=== PATIENT | male | born 1950 | race Caucasian/White ===

== ENCOUNTER 2016-09-26 18:12 | Emergency (ER) | payer OTHER ==
[~2016-09-26] VITALS: Ht 188 cm; Wt 123.1 kg
[2016-09-26 18:21] VITALS: TEMP 36.9; Ht 188 cm; Wt 123.1 kg
[2016-09-26] MEDS ORDERED: SODIUM CHLORIDE 0.9% 1000ML 1,000 ML IV STA ×2 (18:32→18:57)
[2016-09-26] MEDS ORDERED: FENTANYL CITRATE INJ 50 MCG/1 ML 2 ML VIAL IV STA (18:32)
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
[2016-09-26 19:12] LABS: PROTHROMBIN TIME (PATIENT) 11.2 SECONDS (9.0-12.0)
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
[2016-09-26 19:20] LABS: ISTAT CREATININE 1.2 mg/dl (0.6-1.3); ISTAT HEMOGLOBIN 13.9 g/dl (14.0-18.0); ISTAT IONIZED CALCIUM 1.22 mmol/l (1.12-1.32)
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
[2016-09-26] MEDS ORDERED: ASPI325T45 PO (19:46)
[2016-09-26] MEDS ORDERED: GLUCTAB7 PO (19:46)
[2016-09-26] MEDS ORDERED: MULT-506 PO (19:46)
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
[2016-09-26] MEDS ORDERED: DIPHTHERIA/TETANUS/PERTUSSIS 0.5 ML SYR/VIAL IM. ONE (20:00)
[2016-09-26 20:10] LABS: HEMATOCRIT 40.1 % (42-52); MEAN CELL VOLUME 94.4 fL (80-100); MEAN CORPUSCULAR HEMOGLOBIN 31.8 pg (25-34); MEAN CORPUSCULAR HGB CONC 33.7 g/dl (32-36); MEAN PLATELET VOLUME 10.2 fL (7.4-10.4); PLATELET COUNT 140 K/uL (130-400); RED BLOOD COUNT 4.25 M/uL (4.7-6.1)
[2016-09-26] MEDS: FENTANYL CITRATE INJ 50 MCG/1 ML 2 ML VIAL IV PRN ×5 (20:25→22:11)
[2016-09-26 20:26] LABS: ALT/SGPT 41 U/L (12-78); BLOOD UREA NITROGEN 27 mg/dl (7-18); BUN/CREATININE RATIO 20.9 (10-20); CALCIUM 8.5 mg/dl (8.5-10.1); CARBON DIOXIDE 28 mmol/L (21-32); CHLORIDE 107 mmol/L (98-107); GLUCOSE 150 mg/dl (70-99); SODIUM 140 mmol/L (136-145)
[2016-09-26 20:31] LABS: ALB/GLOB RATIO 1.2 (0.9-2); ALKALINE PHOSPHATASE 60 U/L (45-117); AST/SGOT 39 U/L (15-37)
[2016-09-26 20:33] LABS: BASO % 0.1 %; BASO ABS # 0.02 K/uL (0-0.2); COMPLETE YES; EOS % 0.2 %; IG% 0.5 %; LYMPH % 6.9 %; MONO % 7.9 %; NEUT % 84.4 %
[2016-09-26] MEDS ORDERED: LIDOCAINE HCL 1% 20 ML VIAL ONE (21:05)
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
[2016-09-26 23:31] VITALS: BP 133/74
[2016-09-26 23:56] VITALS: PULSE 76; O2SAT 97
[2016-09-27] MEDS: FENTANYL CITRATE INJ 50 MCG/1 ML 2 ML VIAL IV PRN (00:01)
[2016-09-27] MEDS ORDERED: MoRPHine SULFATE 10 MG/ML CARP/VIAL ONE (04:32)
[2016-09-27] MEDS ORDERED: ONDANSETRON INJ 2 MG/ML 2 ML VIAL ONE (04:33)
== END 2016-09-27 00:10 | disposition short-term general hospital (02) ==
LOC: EDBD 18:12 → C.EDA 18:16 → C.EDB 09-27 00:10
DX: S27.0XXA Traumatic pneumothorax, initial encounter (principal); S42.002A Fracture of unspecified part of left clavicle, initial encounter for closed fracture; S62.92XA Unspecified fracture of left hand, initial encounter for closed fracture; S52.125A Nondisplaced fracture of head of left radius, initial encounter for closed fracture; S22.42XA Multiple fractures of ribs, left side, initial encounter for closed fracture; S42.115A Nondisplaced fracture of body of scapula, left shoulder, initial encounter for closed fracture; S90.415A Abrasion, left lesser toe(s), initial encounter; V20.9XXA Unspecified motorcycle rider injured in collision with pedestrian or animal in traffic accident, initial encounter; Y92.410 Unspecified street and highway as the place of occurrence of the external cause

== ENCOUNTER → 2016-10-12 | Outpatient (CLI) | payer OTHER ==
[~2016-10-12] MED LIST: ASPI325T45 PO; GLUCTAB7 PO; MULT-506 PO
== END | disposition home or self-care (01) ==
LOC: C.RDSM 10:07
PROVIDERS: ATTEND Physical Medicine & Rehabilitation Sports Medicine
DX: S49.92XA Unspecified injury of left shoulder and upper arm, initial encounter (principal); X58.XXXA Exposure to other specified factors, initial encounter

== ENCOUNTER → 2016-10-12 | Outpatient (CLI) | payer OTHER ==
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
== END | disposition home or self-care (01) ==
LOC: C.CTS 12:09
PROVIDERS: ATTEND Physical Medicine & Rehabilitation Sports Medicine
DX: M79.641 Pain in right hand (principal); S42.112A Displaced fracture of body of scapula, left shoulder, initial encounter for closed fracture; S42.022A Displaced fracture of shaft of left clavicle, initial encounter for closed fracture; X58.XXXA Exposure to other specified factors, initial encounter

== ENCOUNTER → 2016-10-29 | Outpatient (CLI) | payer OTHER | END | disposition home or self-care (01) | LOC: C.RDSM 14:04 | PROVIDERS: ATTEND Physical Medicine & Rehabilitation Sports Medicine | DX: S42.022D Displaced fracture of shaft of left clavicle, subsequent encounter for fracture with routine healing (principal); S42.112D Displaced fracture of body of scapula, left shoulder, subsequent encounter for fracture with routine healing; X58.XXXD Exposure to other specified factors, subsequent encounter ==

== ENCOUNTER → 2016-11-19 | Outpatient (CLI) | payer OTHER | END | disposition home or self-care (01) | LOC: C.RDSM 16:21 | PROVIDERS: ATTEND Physical Medicine & Rehabilitation Sports Medicine | DX: S42.112D Displaced fracture of body of scapula, left shoulder, subsequent encounter for fracture with routine healing (principal); S42.022D Displaced fracture of shaft of left clavicle, subsequent encounter for fracture with routine healing; X58.XXXD Exposure to other specified factors, subsequent encounter ==

== ENCOUNTER → 2016-12-24 | Outpatient (CLI) | payer OTHER | END | disposition home or self-care (01) | LOC: C.RDSM 07:04 | PROVIDERS: ATTEND Physical Medicine & Rehabilitation Sports Medicine | DX: S42.022D Displaced fracture of shaft of left clavicle, subsequent encounter for fracture with routine healing (principal); S42.112D Displaced fracture of body of scapula, left shoulder, subsequent encounter for fracture with routine healing; X58.XXXD Exposure to other specified factors, subsequent encounter ==

== ENCOUNTER → 2017-02-04 | Outpatient (CLI) | payer OTHER | END | disposition home or self-care (01) | LOC: C.RDSM 12:00 | PROVIDERS: ATTEND Physical Medicine & Rehabilitation Sports Medicine | DX: S42.112A Displaced fracture of body of scapula, left shoulder, initial encounter for closed fracture (principal); X58.XXXA Exposure to other specified factors, initial encounter; S42.022D Displaced fracture of shaft of left clavicle, subsequent encounter for fracture with routine healing; X58.XXXD Exposure to other specified factors, subsequent encounter ==

== ENCOUNTER 2017-10-13 07:25 | Emergency (ER) | payer OTHER ==
[~2017-10-13 07:25] MED LIST changes: +ASPECOTC PO; -ASPI325T45 PO
[2017-10-13 07:31] VITALS: Ht 188 cm
[2017-10-13] MEDS ORDERED: ONDANSETRON INJ 2 MG/ML 2 ML VIAL IV STA (07:40)
[2017-10-13] MEDS ORDERED: SODIUM CHLORIDE 0.9% 1000ML 1,000 ML IV STA (07:40)
[2017-10-13] MEDS ORDERED: KETOROLAC TROMETHAMINE 30 MG/ML VIAL IV STA (07:40)
[2017-10-13] MEDS ORDERED: FENTANYL CITRATE INJ 50 MCG/1 ML 2 ML VIAL IV STA (07:40)
[2017-10-13 08:04] LABS: BASO % 0.3 %; BASO ABS # 0.02 K/uL (0-0.2); EOS % 1.3 %; EOS ABS # 0.08 K/uL (0-0.5); HEMATOCRIT 47.1 % (42-52); HEMOGLOBIN 16.3 g/dL (14.0-18.0); IG# 0.01 K/uL (0.00-0.02); LYMPH % 23.7 %; LYMPH ABS # 1.47 K/uL (1.2-3.4); MEAN CELL VOLUME 91.5 fL (80-100); MEAN CORPUSCULAR HEMOGLOBIN 31.7 pg (25-34); MEAN CORPUSCULAR HGB CONC 34.6 g/dl (32-36); MEAN PLATELET VOLUME 10.7 fL (7.4-10.4); MONO % 8.9 %; MONO ABS # 0.55 K/uL (0.11-0.59); NEUT % 65.6 %; NEUT ABS # 4.07 K/uL (1.4-6.5); PLATELET COUNT 152 K/uL (130-400); RED CELL DISTRIBUTION WIDTH CV 12.7 % (11.5-14.5); RED CELL DISTRIBUTION WIDTH SD 42.4 fL (36.4-46.3)
[2017-10-13 08:25] LABS: ALBUMIN 4.5 gm/dl (3.4-5.0); ALKALINE PHOSPHATASE 79 U/L (45-117); ALT/SGPT 45 U/L (12-78); AST/SGOT 28 U/L (15-37); BLOOD UREA NITROGEN 20 mg/dl (7-18); CALCIUM 9.4 mg/dl (8.5-10.1); CARBON DIOXIDE 20 mmol/L (21-32); CREATININE 1.21 mg/dl (0.60-1.40); GLUCOSE 163 mg/dl (70-99); LIPASE 139 U/L (73-393); POTASSIUM 3.8 mmol/L (3.5-5.1); SODIUM 140 mmol/L (136-145); TOTAL PROTEIN 8.1 gm/dl (6.4-8.2)
--- NOTE | 2017-10-13 08:49 | DIAGNOSTIC IMAGING REPORT ---
ABD/PELVIS WITHOUT FOR STONE HISTORY: 67 years-old Male flank pain acute bilateral flank pain COMPARISON: CT abdomen and pelvis 09/26/2016 TECHNIQUE: Multiple axial CT images of the abdomen and pelvis were obtained without use of IV contrast. A dose lowering technique was used consistent with the principals of ANNIA. FINDINGS: 4 mm solid nodule of the right lower lobe on image 22 series 3 appears unchanged. No pneumatosis or pneumoperitoneum. Imaged inferior cardiac chambers are unremarkable. Hepatic steatosis. Probable cyst of the left hepatic lobe, 2.3 cm is unremarkable. No intrahepatic biliary ductal dilation. The spleen, pancreas and adrenal glands are unremarkable. 1.5 cm hypodense lesion of the superior pole right kidney is redemonstrated suggesting probable renal cyst. Mild bilateral perinephric stranding. There is mild right-sided hydroureteronephrosis secondary to a 5 x 4 x 5 mm calculus of the mid right ureter which is seen at the level of the mid L4 vertebral body. The previously noted calculus about the inferior pole left kidney is no longer identified. There is a 6 mm linear calcification about the left hemipelvis and image 361 series 3 which suggests a calculus of the distal left ureter approximately 3.5 cm proximal to the ureterovesicular junction. No significant left-sided obstructive uropathy. Prostamegaly with soft tissue mass measuring up to approximately 3.2 x 3.0 cm about the right paracentral floor of the bladder. Aorta and IVC appear unremarkable. There are no pathologically enlarged lymph nodes. Small moderate fat filled bilateral inguinal hernias. No bowel obstruction or focal bowel wall thickening identified. Moderate sized stool ball about the rectum. Colonic diverticulosis without diverticulitis. Terminal ileum and appendix appear unremarkable. Small fat filled periumbilical hernia, diastases 1.5 cm. No ascites or mesenteric inflammatory changes. Bones appear intact. Multilevel spondylitic spurring with intervertebral disc space narrowing. IMPRESSION: 1. Mild right-sided hydroureteronephrosis secondary to a 5 x 4 x 5 mm calculus of the mid right ureter seen at the level of the mid L4 vertebral body. 2. Previously noted nonobstructing calculus about the inferior pole left kidney is no longer identified. Additionally, there is a 6 mm linear calcification about the left hemipelvis suggesting a calculus of the distal left ureter, approximately 3.5 cm proximal to the ureterovesicular junction. 3. Prostamegaly with soft tissue density again seen about the base of the urinary bladder measuring over 3 cm, again suggesting prostatic tissue with urinary bladder neoplasm thought to be less likely. This could be correlated with cystoscopy if of further clinical concern. 4. Colonic diverticulosis without diverticulitis. 5. Hepatic steatosis. 6. Additional findings as above. The above report was generated using voice recognition software. It may contain grammatical, syntax or spelling errors. Electronically signed by: Tuan Neumann M.D. 10/13/2017 8:48 AM Dictated Date/Time: 10/13/2017 8:34 AM
[2017-10-13] MEDS ORDERED: OXYC-57 PO (09:59)
[2017-10-13] MEDS ORDERED: TAMS0.4C38 PO (09:59)
[2017-10-13] MEDS ORDERED: OXYCODONE/ACETAMINOPHEN 5-325 TAB PO ONE (10:00)
[2017-10-13] MEDS ORDERED: TAMSULOSIN HCL 0.4 MG CAP PO ONE (10:00)
[2017-10-13 10:03] VITALS: BP 109/87; PULSE 53; O2SAT 96
--- NOTE | 2017-10-13 10:04 | EMERGENCY ROOM VISIT NOTE ---
History Report prepared by Paulinaibkyle: Corrine Lyn Under the Supervision of: Dr. Hao Valdivia D.O. First contact with patient: 07:34 Chief Complaint: ABDOMINAL PAIN Stated Complaint: ABD PAIN History of Present Illness The patient is a 67 year old male who presents to the Emergency Room with complaints of severe intermittent lower right abdominal/flank pain beginning 2 hours ago. He notes the pain came on suddenly, and now comes in waves. The patient reports he began vomiting shortly after the pain started. He notes movement does not seem to worsen his pain. The patient states he urinated about 1.5 hours before the pain began, and did not notice any blood in his urine at that time. Source of History: patient Onset: 2 hours ago Position: abdomen (lower right abdomen/flank) Symptom Intensity: severe Timing: intermittent Modifying Factors (Worsening): other (not worsened by movement) Associated Symptoms: + vomiting Review of Systems See HPI for pertinent positives & negatives. A total of 10 systems reviewed and were otherwise negative. Past Medical & Surgical Medical Problems: (1) No Known Active Medical Problems Family History No pertinent family history stated. Social History Smoking Status: Never Smoker Drug Use: none Marital Status: Housing Status: lives with family Occupation Status: retired Current/Historical Medications Scheduled Aspirin (Aspirin), 325 MG PO DAILY Wuhybogleib-Hkhpmrpngqc-Dhy C- (Glucosamine Chondroitin), 1 TAB PO DAILY Multivitamin (Multivitamin), 1 TAB PO DAILY Allergies Coded Allergies: No Known Allergies (Unverified , 10/13/17) Physical Exam Vital Signs Date Time Temp Pulse Resp B/P (MAP) Pulse Ox O2 Delivery O2 Flow Rate FiO2 10/13/17 08:16 54 14 130/78 98 Room Air 10/13/17 07:31 64 20 161/81 100 Room Air Physical Exam CONSTITUTIONAL/VITAL SIGNS: Reviewed / noted above. GENERAL: Non-toxic in appearance. INTEGUMENTARY: Warm, dry, and [place]. HEAD: Normocephalic. EYES: without scleral icterus or trauma. ENT/OROPHARYNX: clear and moist. LYMPHADENOPATHY/NECK: Is supple without lymphadenopathy or meningismus. RESPIRATORY: Lungs clear and equal. CARDIOVASCULAR: Regular rate and rhythm. GI/ABDOMEN: Soft and nontender. No organomegaly or pulsatile mass. No rebound or guarding. Normal bowel sounds. EXTREMITIES: Warm and well perfused. BACK: Mild right-sided CVA tenderness. NEUROLOGICAL: Intact without focal deficits. PSYCHIATRIC: normal affect. MUSCULOSKELETAL: Normally developed with good muscle tone. Medical Decision & Procedures ER Provider Diagnostic Interpretation: Radiology results as stated below per my review and radiologist interpretation: ABD/PELVIS WITHOUT FOR STONE HISTORY: 67 years-old Male flank pain acute bilateral flank pain COMPARISON: CT abdomen and pelvis 09/26/2016 TECHNIQUE: Multiple axial CT images of the abdomen and pelvis were obtained without use of IV contrast. A dose lowering technique was used consistent with the principals of ANNIA. FINDINGS: 4 mm solid nodule of the right lower lobe on image 22 series 3 appears unchanged. No pneumatosis or pneumoperitoneum. Imaged inferior cardiac chambers are unremarkable. Hepatic steatosis. Probable cyst of the left hepatic lobe, 2.3 cm is unremarkable. No intrahepatic biliary ductal dilation. The spleen, pancreas and adrenal glands are unremarkable. 1.5 cm hypodense lesion of the superior pole right kidney is redemonstrated suggesting probable renal cyst. Mild bilateral perinephric stranding. There is mild right-sided hydroureteronephrosis secondary to a 5 x 4 x 5 mm calculus of the mid right ureter which is seen at the level of the mid L4 vertebral body. The previously noted calculus about the inferior pole left kidney is no longer identified. There is a 6 mm linear calcification about the left hemipelvis and image 361 series 3 which suggests a calculus of the distal left ureter approximately 3.5 cm proximal to the ureterovesicular junction. No significant left-sided obstructive uropathy. Prostamegaly with soft tissue mass measuring up to approximately 3.2 x 3.0 cm about the right paracentral floor of the bladder. Aorta and IVC appear unremarkable. There are no pathologically enlarged lymph nodes. Small moderate fat filled bilateral inguinal hernias. No bowel obstruction or focal bowel wall thickening identified. Moderate sized stool ball about the rectum. Colonic diverticulosis without diverticulitis. Terminal ileum and appendix appear unremarkable. Small fat filled periumbilical hernia, diastases 1.5 cm. No ascites or mesenteric inflammatory changes. Bones appear intact. Multilevel spondylitic spurring with intervertebral disc space narrowing. IMPRESSION: 1. Mild right-sided hydroureteronephrosis secondary to a 5 x 4 x 5 mm calculus of the mid right ureter seen at the level of the mid L4 vertebral body. 2. Previously noted nonobstructing calculus about the inferior pole left kidney is no longer identified. Additionally, there is a 6 mm linear calcification about the left hemipelvis suggesting a calculus of the distal left ureter, approximately 3.5 cm proximal to the ureterovesicular junction. 3. Prostamegaly with soft tissue density again seen about the base of the urinary bladder measuring over 3 cm, again suggesting prostatic tissue with urinary bladder neoplasm thought to be less likely. This could be correlated with cystoscopy if of further clinical concern. 4. Colonic diverticulosis without diverticulitis. 5. Hepatic steatosis. 6. Additional findings as above. The above report was generated using voice recognition software. It may contain grammatical, syntax or spelling errors. Electronically signed by: Tuan Neumann M.D. 10/13/2017 8:48 AM Dictated Date/Time: 10/13/2017 8:34 AM Laboratory Results 10/13/17 07:57 Red Blood Count 5.15, Mean Corpuscular Volume 91.5, Mean Corpuscular Hemoglobin 31.7, Mean Corpuscular Hemoglobin Concent 34.6, Mean Platelet Volume 10.7, Neutrophils (%) (Auto) 65.6, Lymphocytes (%) (Auto) 23.7, Monocytes (%) (Auto) 8.9, Eosinophils (%) (Auto) 1.3, Basophils (%) (Auto) 0.3, Neutrophils # (Auto) 4.07, Lymphocytes # (Auto) 1.47, Monocytes # (Auto) 0.55, Eosinophils # (Auto) 0.08, Basophils # (Auto) 0.02 10/13/17 07:57 Test 10/13/17 07:57 10/13/17 09:15 White Blood Count 6.20 K/uL (4.8-10.8) Red Blood Count 5.15 M/uL (4.7-6.1) Hemoglobin 16.3 g/dL (14.0-18.0) Hematocrit 47.1 % (42-52) Mean Corpuscular Volume 91.5 fL (80-100) Mean Corpuscular Hemoglobin 31.7 pg (25-34) Mean Corpuscular Hemoglobin Concent 34.6 g/dl (32-36) Platelet Count 152 K/uL (130-400) Mean Platelet Volume 10.7 fL (7.4-10.4) Neutrophils (%) (Auto) 65.6 % Lymphocytes (%) (Auto) 23.7 % Monocytes (%) (Auto) 8.9 % Eosinophils (%) (Auto) 1.3 % Basophils (%) (Auto) 0.3 % Neutrophils # (Auto) 4.07 K/uL (1.4-6.5) Lymphocytes # (Auto) 1.47 K/uL (1.2-3.4) Monocytes # (Auto) 0.55 K/uL (0.11-0.59) Eosinophils # (Auto) 0.08 K/uL (0-0.5) Basophils # (Auto) 0.02 K/uL (0-0.2) RDW Standard Deviation 42.4 fL (36.4-46.3) RDW Coefficient of Variation 12.7 % (11.5-14.5) Immature Granulocyte % (Auto) 0.2 % Immature Granulocyte # (Auto) 0.01 K/uL (0.00-0.02) Anion Gap 14.0 mmol/L (3-11) Estimated GFR () 71.4 Estimated GFR (Non- 61.6 BUN/Creatinine Ratio 16.2 (10-20) Calcium Level 9.4 mg/dl (8.5-10.1) Total Bilirubin 1.0 mg/dl (0.2-1) Direct Bilirubin 0.2 mg/dl (0-0.2) Aspartate Amino Transf (AST/SGOT) 28 U/L (15-37) Alanine Aminotransferase (ALT/SGPT) 45 U/L (12-78) Alkaline Phosphatase 79 U/L (45-117) Total Protein 8.1 gm/dl (6.4-8.2) Albumin 4.5 gm/dl (3.4-5.0) Lipase 139 U/L (73-393) Urine Color DK YELLOW Urine Appearance CLEAR (CLEAR) Urine pH 6.5 (4.5-7.5) Urine Specific [place] 1.029 (1.000-1.030) Urine Protein NEG (NEG) Urine Glucose (UA) NEG (NEG) Urine Ketones TRACE (NEG) Urine Occult Blood 1+ (NEG) Urine Nitrite NEG (NEG) Urine Bilirubin NEG (NEG) Urine Urobilinogen NEG (NEG) Urine Leukocyte Esterase TRACE (NEG) Urine WBC (Auto) 1-5 /hpf (0-5) Urine RBC (Auto) 10-30 /hpf (0-4) Urine Hyaline Casts (Auto) 1-5 /lpf (0-5) Urine Epithelial Cells (Auto) 10-20 /lpf (0-5) Urine Bacteria (Auto) NEG (NEG) Laboratory results as stated above per my review. Medications Administered Medications (Trade) Dose Ordered Sig/Liz Route Start Time Stop Time Status Last Admin Dose Admin Sodium Chloride 1,000 ml @ 999 mls/hr Q1H1M STAT IV 10/13/17 07:40 10/13/17 08:40 DC 10/13/17 08:01 999 MLS/HR Fentanyl Citrate (Fentanyl Inj) 100 mcg NOW STAT IV 10/13/17 07:40 10/13/17 07:41 DC 10/13/17 08:00 100 MCG Ondansetron HCl (Zofran Inj) 4 mg NOW STAT IV 10/13/17 07:40 10/13/17 07:41 DC 10/13/17 08:00 4 MG Ketorolac Tromethamine (Toradol Inj) 30 mg NOW STAT IV 10/13/17 07:40 10/13/17 07:41 DC 10/13/17 08:01 30 MG ED Course 0736: Previous medical records were reviewed. The patient was evaluated in room A12B. A complete history and physical examination was performed. 0740: Ordered Toradol Inj 30 mg IV, Zofran Inj 4 mg IV, Fentanyl Inj 100 mcg IV , Sodium Chloride 1000 ml @ 999 mls/hr IV 0937: On reevaluation, the patient is resting. I discussed the results and findings with the patient. He verbalized agreement of the treatment plan. The patient was discharged home. Medical Decision Differential considered: pancreatitis, hepatitis, or acute cholecystitis, AAA, UTI, pyelonephritis, kidney stones, appendicitis, diverticulitis, shingles, bowel obstruction mesenteric ischemia, intussusception,hernia, testicular torsion. This is a 67-year-old male who presents to the ED with a chief complaint of right sided abdominal pain. The patient states that the symptoms started suddenly around 5 AM today. It was associated with some nausea and vomiting. He states that the pain waxes and wanes. His physical exam was relatively unremarkable. He had some mild right CVA tenderness. His blood pressure was a little elevated. This is likely due to his discomfort. His abdomen is soft and nontender. CT scan of the abdomen pelvis reveals some mild right-sided hydronephrosis and a 5 x 5 mm calculus in the mid right ureter. CBC as well as metabolic panel was unremarkable. Urine did not show infection. The patient was treated with IV fluids, IV Toradol, IV fentanyl and IV Zofran. He was also given oral Flomax and a Percocet p.o. He was told the results. He was feeling better. He was discharged with urine strainer. He was also told to take ibuprofen 400 mg every 6 hours and take Percocet as needed. Flomax was also prescribed. Medication Reconcilliation Current Medication List: was personally reviewed by me Blood Pressure Screening Patient's blood pressure: Elevated blood pressure Blood pressure disposition: Elevated BP felt to be situational Impression Primary Impression: Kidney stone Scribe Attestation The scribe's documentation has been prepared under my direction and personally reviewed by me in its entirety. I confirm that the note above accurately reflects all work, treatment, procedures, and medical decision making performed by me. Departure Information Dispostion Home / Self-Care Prescriptions Oxycodone/Acetaminophen 5MG/325MG (PERCOCET 5MG/325MG) Tab 1 TAB PO Q6H Y for Pain, #20 TAB Prov: Hao Valdivia D.O. 10/13/17 Tamsulosin Hcl (FLOMAX) 0.4 Mg Cap 0.4 MG PO HS for 10 Days, #10 CAP Prov: Hao Valdivia D.O. 10/13/17 Referrals Tuyet Mar (PCP) Forms Call Back Authorization, HOME CARE DOCUMENTATION FORM, IMPORTANT VISIT INFORMATION Patient Instructions Kidney Stones, My [facility] Additional Instructions Strain urine for stone. Take ibuprofen 2-3 tablets every 6 hours for pain until stone passes. Percocet as prescribed. No driving within 6 hours of use. Do not take additional Tylenol while taking Percocet. Flomax as prescribed. Follow-up with your doctor for further care and evaluation in 3-4 days if symptoms persist. Return to the emergency department for worsening or new symptoms or any concerns. You have been examined and treated today on an emergency basis only. This is not a substitute for, or an effort to provide, complete comprehensive medical care. It is impossible to recognize and treat all injuries or illnesses in a single emergency department visit. It is therefore important that you follow up closely with your doctor. Call as soon as possible for an appointment.
== END 2017-10-13 10:17 | disposition home or self-care (01) ==
LOC: C.EDB 07:26 → C.EDA 10:17
DX: N20.0 Calculus of kidney (principal); Z79.82 Long term (current) use of aspirin; Z79.899 Other long term (current) drug therapy

== ENCOUNTER 2022-05-03 16:40 | Observation (INO) ==
--- NOTE | 2022-05-03 16:56 | ED Triage Note ---
Date of Service May 03, 2022 History of Present Illness This patient was briefly evaluated while in triage. An abbreviated physical exam was performed. This patient is a 71-year-old Male who presents to the ED for evaluation of intermittent severe left flank pain that began today. Accompanied by nausea and vomiting. Worse with inspiration. History of kidney stone in 2018. Physical Exam CONSTITUTIONAL: uncomfortable appearing, nauseated. SKIN: pink, warm, diaphoretic CARDIAC: regular rate and rhythm RESPIRATORY: in no respiratory distress, lungs clear to auscultation ABDOMEN: no focal tenderness BACK: tender in L lower flank region Initial orders for labs and / or imaging were placed and patient was placed in the waiting area until a bed is available. Please see further documentation for the full ED course.
[2022-05-03] MEDS ORDERED: ONDANSETRON INJ 2 MG/ML 2 ML VIAL IV STA (17:00)
[2022-05-03] MEDS ORDERED: SODIUM CHLORIDE 0.9% 500 ML IV ONE (17:00)
[2022-05-03] MEDS ORDERED: MoRPHine SULFATE 4 MG/ML 1 ML CARP\\VIAL IV STA (17:00)
[2022-05-03 17:25] LABS: Basophils # (auto) 0.04 K/uL (0-0.2); Basophils % (auto) 0.3 %; Eosinophils # (auto) 0.05 K/uL (0-0.50); Eosinophils % (auto) 0.4 %; Hematocrit (blood only) 40.9 % (42.0-52.0); Hemoglobin 14.5 g/dl (14.0-18.0); Immature Granulocytes # (auto) 0.04 K/uL (0.01-0.20); Immature Granulocytes % (auto) 0.3 %; Lymphocytes # (auto) 1.19 K/uL (1.2-3.4); Lymphocytes % (auto) 9.9 %; Mean Corpuscular Hemoglobin 31.7 pg (25.0-34.0); Mean Corpuscular Hgb Conc 35.5 g/dL (32.0-36.0); Mean Corpuscular Volume 89.3 fL (80.0-100.0); Mean Platelet Volume 10.7 fL (9.4-12.4); Monocytes # (auto) 1.34 K/uL (0.11-0.59); Monocytes % (auto) 11.2 %; Neutrophils # (auto) 9.32 K/uL (1.40-6.50); Neutrophils % (auto) 77.9 %; Platelet Count 151 K/uL (130-400); RDW Coefficient of Variation 12.5 % (11.5-14.5); Red Blood Count 4.58 M/uL (4.70-6.10); White Blood Count 11.98 K/ul (4.8-10.8)
[2022-05-03 17:41] LABS: Alanine Aminotransferase 24 U/L (7-52); Albumin Globulin Ratio 1.7 (0.9-2); Albumin Level 4.7 gm/dl (3.4-5.0); Alkaline Phosphatase 62 U/L (34-104); Anion Gap 8 (3-11); Aspartate Aminotransferase 21 U/L (13-39); BUN Creatinine Ratio 15.7 (10-20); Bilirubin,Total 1.9 mg/dl (0.2-1.0); Blood Urea Nitrogen 13 mg/dl (6-23); Calcium 9.3 mg/dl (8.5-10.1); Carbon Dioxide 26 mmol/L (21-32); Chloride 102 mmol/L (98-107); Est GFR (African American) 102.6 ml/min; Est GFR (Non-African American) 88.5 ml/min; Globulin 2.7 gm/dl (2.5-4.0); Glucose 133 mg/dl (70-99(Fasting)); Lipase 12 U/L (11-82); Potassium 3.7 mmol/L (3.5-5.1); Sodium 136 mmol/L (136-145); Total Protein 7.4 gm/dl (6.0-8.3)
--- NOTE | 2022-05-03 18:41 | Emergency Department Note ---
Impression & Plan Pulmonary embolism, Acute left flank pain ED Provider Note NAME: GABINO CULP AGE: 71 SEX: M : 1950 ARRIVES VIA: Walk-In INFORMANT: Patient, ED PROVIDER(S): Avery Dodson DO CHIEF COMPLAINT: Flank pain HPI: The patient is a 71-year-old male who presented to the emergency department for an evaluation of flank pain. The patient states he developed flank pain over the course of the last few days. He had kidney stones in the past and thought that what it was. The patient states that he was trying to hydrate hoping that this would help with his kidney stones but unfortunately he was not feeling much better. The patient has not been seen by his family doctor. The patient states the pain is somewhat improved at this time but it does have a waxing and waning component. The patient denies having any chest pain. He denies having any difficulty breathing. He has had no lower extremity swelling. ROS: See above HPI for pertinent positives & negatives. A total of 10 systems reviewed and were otherwise negative. PAST MEDICAL HISTORY: See Below PAST SURGICAL HISTORY: See Below FAMILY HISTORY: See Below SOCIAL HISTORY: See Below HOME MEDICATIONS: See Below ALLERGIES: See Below VITALS: See Below PHYSICAL EXAMINATION: GENERAL: The patient is awake and alert. He does appear to be somewhat unco mfortable. EYES: The conjunctivae are clear. The pupils are round and reactive. EARS, NOSE, MOUTH AND THROAT: The nose is without any evidence of any deformity. NECK: The neck is nontender and supple. RESPIRATORY: Normal respiratory effort is noted there is no evidence of wheezing rhonchi or rales CARDIOVASCULAR: Regular rate and rhythm noted there no murmurs rubs or gallops normal S1 normal S2. GASTROINTESTINAL: The abdomen is soft. Abdomen is nontender BACK: There is no midline tenderness to palpation. There was left CVA tenderness to percussion. MUSCULOSKELETAL/EXTREMITIES: There is no evidence of gross deformity full range of motion is noted in the hips and shoulders. SKIN: Pedal edema was noted bilaterally. Skin was warm and dry. NEUROLOGIC: Patient is awake alert and oriented x3. Gait was steady. MEDICAL DECISION MAKING: The patient is a 71-year-old male who presented to the emergency department for an evaluation of flank pain. Initially he was seen in triage and orders were placed for a kidney stone work-up as the patient felt this was consistent with previous kidney stone. He also had reproducible left CVA tenderness. He was also complaining of pleuritic pain as well. He was not tachycardic or hypoxic. The patient has no history of pulmonary venous thromboembolic disease. After the CT of the abdomen pelvis was obtained it did suggest a pulmonary infarct. For this reason CT of the chest was obtained. This appears to show signs of bilateral pulmonary embolism. The patient was started on IV heparin. I discu ssed the patient's condition with him. [facility] also [facility] have agreed to evaluate the patient in the emergency department for further management and disposition. Triage Nursing notes reviewed. Prior medical records reviewed Vital Signs: reviewed and remarkable for no significant abnormalities Differential diagnosis: Renal colic, UTI, appendicitis, diverticulitis, mesenteric ischemia, aortic pathology, infections, inflammatory bowel disease, PUD, biliary pathology, as well as other pathologies. ER treatment provided: See below Diagnostics interpreted by me: ECG: EKG was obtained in the emergency department. My interpretation is normal sinus rhythm at 62 bpm. There is no ectopy. There is no acute ST segment abnormalities noted. This was compared to a tracing from September 26, 2016. No changes were noted Cardiac Monitoring: An order was placed for continuous cardiac monitoring. The monitor shows a rate of 70 bpm with sinus rhythm. Laboratory studies: As stated above and show below. Imaging studies: See below. Radiographic imaging was reviewed by myself Consultation(s): I discussed this case with Dr. Claudio who [facility] ED COURSE: Procedures: none Critical Care: I have personally spent greater than 45 minutes of critical care time in the direct management of this patient. This includes bedside care, interpretation of diagnostic studies, and testing, discussion with consultants, patient, and family members, and other required patient management activities. This 45 minutes is in excess of all separately billable procedures. Past Med/Surg History Medical History (Updated 05/03/22 @ 22:28 by Byron Castaneda DO) BPH (benign prostatic hyperplasia) Kidney stone Social History Smoking Status: Never smoker Feels Safe at Home: Yes Allergies Allergies Allergy/AdvReac Type Severity Reaction Status Date / Time No Known Allergies Allergy Unverified 05/03/22 20:53 Home Meds Home Medications Medication Instructions Recorded Confirmed faekjfwydctg-sxmgrikv-[id number] tablet 1 tab PO DAILY 05/03/22 05/03/22 Results & Data (ED) Vital Signs Vital Signs - 24 hr 05/03/22 16:54 05/03/22 18:23 05/03/22 19:35 Temperature 36.8 C Temperature Source Temporal Artery Scan Pulse Rate 83 66 Pulse Rate [Right Finger] 81 Respiratory Rate 20 18 Respiratory Effort / Characteristics Non-Labored Spontaneous Respiratory Depth Normal Respiratory Pattern Regular Blood Pressure 140/86 Blood Pressure [Right Arm] 120/75 Blood Pressure Mean 104 Blood Pressure Mean [Right Arm] 90 Pulse Oximetry 94 95 Oxygen Delivery Method Room Air Room Air Sepsis Recent Fever Within 48 Hours No Sepsis New/Unexplained Change in Mental Status No Sepsis Action Taken by Nursing No Action Required 05/03/22 19:38 Temperature Temperature Source Pulse Rate Pulse Rate [Right Finger] 65 Respiratory Rate 18 Respiratory Effort / Characteristics Respiratory Depth Respiratory Pattern Blood Pressure Blood Pressure [Right Arm] 114/67 Blood Pressure Mean Blood Pressure Mean [Right Arm] 82 Pulse Oximetry 94 Oxygen Delivery Method Room Air Sepsis Recent Fever Within 48 Hours Sepsis New/Unexplained Change in Mental Status Sepsis Action Taken by Custodial Medications Current Medication List: was personally reviewed by me Laboratory Data Attestation: I reviewed the patient's lab results. 05/03/22 17:06 05/03/22 17:06 Lab Results 05/03/22 05/03/22 05/03/22 Range/Units 17:06 17:06 18:24 WBC 11.98 H (4.8-10.8) K/ul RBC 4.58 L (4.70-6.10) M/uL Hgb 14.5 (14.0-18.0) g/dl Hct 40.9 L (42.0-52.0) % MCV 89.3 (80.0-100.0) fL MCH 31.7 (25.0-34.0) pg MCHC 35.5 (32.0-36.0) g/dL RDW Std Deviation 41.0 (36.4-46.3) fL RDW Coeff of Ivis 12.5 (11.5-14.5) % Plt Count 151 (130-400) K/uL MPV 10.7 (9.4-12.4) fL Immature Gran % (Auto) 0.3 % Neut % (Auto) 77.9 % Lymph % (Auto) 9.9 % [place] % (Auto) 11.2 % Eos % (Auto) 0.4 % Baso % (Auto) 0.3 % Neut # (Auto) 9.32 H (1.40-6.50) K/uL Lymph # (Auto) 1.19 L (1.2-3.4) K/uL [place] # (Auto) 1.34 H (0.11-0.59) K/uL Eos # (Auto) 0.05 (0-0.50) K/uL Baso # (Auto) 0.04 (0-0.2) K/uL Immature Gran # (Auto) 0.04 (0.01-0.20) K/uL PT (9.0-12.0) Seconds INR (0.9-1.1) APTT (21.0-31.0) Seconds PTT Ratio Sodium 136 (136-145) mmol/L Potassium 3.7 (3.5-5.1) mmol/L Chloride 102 (98-107) mmol/L Carbon Dioxide 26 (21-32) mmol/L Anion Gap 8 (3-11) BUN 13 (6-23) mg/dl Creatinine 0.83 (0.6-1.4) mg/dl Est Cr Clr Drug Dosing Not Reportable Est GFR ( Amer) 102.6 ml/min Est GFR (Non-Af Amer) 88.5 ml/min BUN/Creatinine Ratio 15.7 (10-20) Glucose 133 H (70-99(Fasting)) mg/dl Calcium 9.3 (8.5-10.1) mg/dl Total Bilirubin 1.9 H (0.2-1.0) mg/dl AST 21 (13-39) U/L ALT 24 (7-52) U/L Alkaline Phosphatase 62 (34-104) U/L Troponin I High Sens (0-20) pg/ml Total Protein 7.4 (6.0-8.3) gm/dl Albumin 4.7 (3.4-5.0) gm/dl Globulin 2.7 (2.5-4.0) gm/dl Albumin/Globulin Ratio 1.7 (0.9-2) Lipase 12 (11-82) U/L Urine Color Yellow Urine Appearance Clear (Clear) Urine pH 7.5 (4.5-7.5) Ur Specific [place] 1.010 (1.000-1.030) Urine Protein Negative (Negative) Urine Glucose (UA) Negative (Negative) Urine Ketones Negative (Negative) Urine Blood Negative (Negative) Urine Nitrite Negative (Negative) Urine Bilirubin Negative (Negative) Urine Urobilinogen Negative (Negative) Ur Leukocyte Esterase Negative (Negative) SARS-CoV-2, RNA, NAAT (NEGATIVE) 05/03/22 05/03/22 05/03/22 Range/Units 19:22 19:22 20:19 WBC (4.8-10.8) K/ul RBC (4.70-6.10) M/uL Hgb (14.0-18.0) g/dl Hct (42.0-52.0) % MCV (80.0-100.0) fL MCH (25.0-34.0) pg MCHC (32.0-36.0) g/dL RDW Std Deviation (36.4-46.3) fL RDW Coeff of [place] (11.5-14.5) % Plt Count (130-400) K/uL MPV (9.4-12.4) fL Immature Gran % (Auto) % Neut % (Auto) % Lymph % (Auto) % [place] % (Auto) % Eos % (Auto) % Baso % (Auto) % Neut # (Auto) (1.40-6.50) K/uL Lymph # (Auto) (1.2-3.4) K/uL [place] # (Auto) (0.11-0.59) K/uL Eos # (Auto) (0-0.50) K/uL Baso # (Auto) (0-0.2) K/uL Immature Gran # (Auto) (0.01-0.20) K/uL PT 11.2 (9.0-12.0) Seconds INR 1.1 (0.9-1.1) APTT 27.1 (21.0-31.0) Seconds PTT Ratio 1.0 Sodium (136-145) mmol/L Potassium (3.5-5.1) mmol/L Chloride (98-107) mmol/L Carbon Dioxide (21-32) mmol/L Anion Gap (3-11) BUN (6-23) mg/dl Creatinine (0.6-1.4) mg/dl Est Cr Clr Drug Dosing Est GFR ( Amer) ml/min Est GFR (Non-Af Amer) ml/min BUN/Creatinine Ratio (10-20) Glucose (70-99(Fasting)) mg/dl Calcium (8.5-10.1) mg/dl Total Bilirubin (0.2-1.0) mg/dl AST (13-39) U/L ALT (7-52) U/L Alkaline Phosphatase (34-104) U/L Troponin I High Sens 4.6 (0-20) pg/ml Total Protein (6.0-8.3) gm/dl Albumin (3.4-5.0) gm/dl Globulin (2.5-4.0) gm/dl Albumin/Globulin Ratio (0.9-2) Lipase (11-82) U/L Urine Color Urine Appearance (Clear) Urine pH (4.5-7.5) Ur Specific [place] (1.000-1.030) Urine Protein (Negative) Urine Glucose (UA) (Negative) Urine Ketones (Negative) Urine Blood (Negative) Urine Nitrite (Negative) Urine Bilirubin (Negative) Urine Urobilinogen (Negative) Ur Leukocyte Esterase (Negative) SARS-CoV-2, RNA, NAAT NEGATIVE (NEGATIVE) Administered Medications Heparin Sodium/Dextrose (Heparin Sodium/Dextrose) 25,000 units in 500 mls @ 36 mls/hr IV .[id number] [facility]; Protocol Stop: 06/02/22 20:29 Last Admin: 05/03/22 20:43 Dose: 1,800 units/hr, 36 mls/hr Documented By: LUISITO Co-signed By: GABE Discontinued Medications Heparin Sodium/Dextrose (Heparin Iv Adult Wt-Based Standard *No* Bolus Protocol) 1 each IV ONE ONE; Protocol Stop: 05/03/22 20:09 Last Admin: 05/03/22 22:15 Dose: Not Given Documented By: GABE Sodium Chloride (Nss) 500 mls @ 999 mls/hr IV .Q31M ONE Stop: 05/03/22 17:30 Last Infusion: 05/03/22 18:21 Dose: 0 mls/hr Documented By: Admin: 05/03/22 17:05 Dose: 999 mls/hr Documented By: RICCI Ioversol (Optiray 320 500ml) 105 ml IV ONCE ONE Stop: 05/03/22 19:46 Last Admin: 05/03/22 19:45 Dose: 105 ml Documented By: CRISTIAN Morphine Sulfate (Morphine Sulfate 4 Mg/Ml 1 Ml Carp\Vial) 4 mg IV NOW STA Stop: 05/03/22 17:01 Last Admin: 05/03/22 18:28 Dose: Not Given Documented By: KATIA Ondansetron HCl (Ondansetron Inj 2 Mg/Ml 2 Ml Vial) 4 mg IV NOW STA Stop: 05/03/22 17:01 Last Admin: 05/03/22 17:05 Dose: 4 mg Documented By: RICCI Imaging Data Attestation: I personally reviewed and interpreted this imaging study as follows : My Impression: CT of the abdomen pelvis was obtained in the emergency department. My interpretation is no signs of obstruction, no free air, formal report below. CT of the chest was obtained in the emergency department for rule out pulmonary embolism. My interpretation is no pneumothorax, final report is below. Radiologist's Impression: Abdomen/Pelvis CT 05/03/22 18:26 CT OF THE ABDOMEN AND PELVIS WITHOUT CONTRAST CLINICAL HISTORY: Left flank pain. COMPARISON STUDY: CT of the abdomen and pelvis October 13, 2017. TECHNIQUE: Axial images of the abdomen and pelvis were obtained without IV contrast. Images were reviewed in the axial, sagittal, and coronal planes. Automated exposure control was utilized for the study. A dose lowering technique was utilized adhering to the principles of ALARA. FINDINGS: Visualized portions of the lower chest demonstrate a trace left pleural effusion. There is groundglass opacity within the left lower lobe. No pneumatosis, free air or portal venous gas is present. There are no ureteral calculi. There is no hydronephrosis. Punctate right renal calculus is present. The prostate is enlarged. Note is again made of a 3.6 cm density which projects over the base of the bladder. This is contiguous with the prostate. This likely reflects hypertrophy of the median lobe. Evaluation of the remainder of the abdomen and pelvis is suboptimal on this unenhanced exam. Hepatic steatosis. A lateral segment hepatic cyst measures 2.5 cm. The spleen, adrenal glands and pancreas are unremarkable. There is no lymphadenopathy. The appendix is normal. Colonic diverticulosis is present. There is no evidence for acute diverticulitis. No evidence for a bowel obstruction. There is a small fat- containing umbilical hernia. No acute fractures are present. There are bilateral renal parapelvic cysts. IMPRESSION: 1. No ureteral calculi. No hydronephrosis. Punctate right renal calculus. 2. Trace left pleural effusion with groundglass opacity within the left lower lobe. This is nonspecific and could reflect atelectasis or an infectious process however a pulmonary infarct is within the differential. If suspicion for pulmonary embolus, a PE protocol chest CT is recommended. 3. Colonic diverticulosis. No evidence for acute diverticulitis. 4. No bowel obstruction. 5. Enlarged prostate. Redemonstration of a 3.6 cm density which projects over the base of the bladder. This likely reflects hypertrophy of the median lobe of the prostate given stability. A urothelial lesion could appear similar but is considered less likely. ACT 112: Negative or not required by law. Electronically signed by: Dylon Kevin M.D. 05/03/2022 6:53 PM Chest CTA 05/03/22 19:12 CT ANGIOGRAPHY OF THE CHEST, PULMONARY EMBOLUS PROTOCOL CLINICAL HISTORY: PE COMPARISON STUDY: Chest CT September 26, 2016. TECHNIQUE: Following IV administration of 105 mL of Optiray, helical axial images of the chest were obtained utilizing the pulmonary embolus protocol. Maximal intensity projections and sagittal and coronal reformats were viewed on an independent 3D workstation. IV contrast was administered without complication. Automated exposure control was utilized for the study. A dose lowering technique was utilized adhering to the principles of ALARA. CT DOSE: 768.37 mGy.cm FINDINGS: Note is made of acute segmental and subsegmental pulmonary emboli within the left lower lobe. There is associated groundglass opacity within the left lower lobe consistent with a pulmonary infarct as shown on abdominal CT. There is a trace left pleural effusion. Evaluation for additional emboli suboptimal given respiratory motion. Suspected small emboli within the right lower lobe pulmonary artery on axial image 167 of 326 are noted. These are age- indeterminate. Size of the heart is normal. There is no thoracic aortic dissection. There is no pneumothorax. Old left-sided rib fractures are present. Hepatic steatosis is noted. There is a lateral segment cyst, measuring 2.1 cm. IMPRESSION: 1. Segmental and subsegmental pulmonary emboli within the left lower lobe with an associated left lower lobe pulmonary infarct and a trace left pleural effusion. 2. A few additional small suspected pulmonary emboli within the right lower lobe pulmonary artery. ACT 112: Negative or not required by law. Electronically signed by: Dylon Kevin M.D. 05/03/2022 8:01 PM Discharge Plan Visit Data Chief Complaint: Flank Pain Stated Complaint: KIDNEY PAIN,LOWER R BACK,PAIN,NAUSEA, ED Provider: Avery Dodson Discharge Problem: Pulmonary embolism, Acute left flank pain Patient Disposition: Being Evaluated by Hospitalist Forms Stand Alone Forms: On License Of [facility] Prescriptions Prescriptions: No Action Centrum Silver Tablet 1 tab PO DAILY Referrals Referrals: Tuyet Mar [Primary Care Provider] -
[2022-05-03 18:54] LABS: Appearance Urine Clear (Clear); Bilirubin Urine Negative (Negative); Blood Urine Negative (Negative); Color Urine Yellow; Glucose Urine UA Negative (Negative); Ketones Urine Negative (Negative); Leukocyte Esterase Urine Negative (Negative); Nitrite Urine Negative (Negative); Protein Urine Negative (Negative); Urobilinogen Urine Negative (Negative); pH Urine 7.5 (4.5-7.5)
--- NOTE | 2022-05-03 18:55 | CT Scan Report ---
CT OF THE ABDOMEN AND PELVIS WITHOUT CONTRAST CLINICAL HISTORY: Left flank pain. COMPARISON STUDY: CT of the abdomen and pelvis October 13, 2017. TECHNIQUE: Axial images of the abdomen and pelvis were obtained without IV contrast. Images were revi ewed in the axial, sagittal, and coronal planes. Automated exposure control was utilized for the corona dy. A dose lowering technique was utilized adhering to the principles of ALARA. FINDINGS: Visualized portions of the lower chest demonstrate a trace left pleural effusion. There is groundglass opacity within the left lower lobe. No pneumatosis, free air or portal venous gas is pres ent. There are no ureteral calculi. There is no hydronephrosis. Punctate right renal calculus is pres ent. The prostate is enlarged. Note is again made of a 3.6 cm density which projects over the base of the bladder. This is contiguous with the prostate. This likely reflects hypertrophy of the median lo be. Evaluation of the remainder of the abdomen and pelvis is suboptimal on this unenhanced exam. Hepa tic steatosis. A lateral segment hepatic cyst measures 2.5 cm. The spleen, adrenal glands and pancrea s are unremarkable. There is no lymphadenopathy. The appendix is normal. Colonic diverticulosis is pr esent. There is no evidence for acute diverticulitis. No evidence for a bowel obstruction. There is a small fat-containing umbilical hernia. No acute fractures are present. There are bilateral renal par apelvic cysts. IMPRESSION: 1. No ureteral calculi. No hydronephrosis. Punctate right renal calculus. 2. Trace left pleural effusion with groundglass opacity within the left lower lobe. This is nonspecif ic and could reflect atelectasis or an infectious process however a pulmonary infarct is within the d ifferential. If suspicion for pulmonary embolus, a PE protocol chest CT is recommended. 3. Colonic diverticulosis. No evidence for acute diverticulitis. 4. No bowel obstruction. 5. Enlarged prostate. Redemonstration of a 3.6 cm density which projects over the base of the bladder . This likely reflects hypertrophy of the median lobe of the prostate given stability. A urothelial l esion could appear similar but is considered less likely. ACT 112: Negative or not required by law. Electronically signed by: Dylon Kevin M.D. 05/03/2022 6:53 PM
[2022-05-03] MEDS ORDERED: OPTIRAY 320 500ml IV ONE (19:45)
--- NOTE | 2022-05-03 20:04 | CT Scan Report ---
CT ANGIOGRAPHY OF THE CHEST, PULMONARY EMBOLUS PROTOCOL CLINICAL HISTORY: PE COMPARISON STUDY: Chest CT September 26, 2016. TECHNIQUE: Following IV administration of 105 mL of Optiray, helical axial images of the chest were o btained utilizing the pulmonary embolus protocol. Maximal intensity projections and sagittal and cor onal reformats were viewed on an independent 3D workstation. IV contrast was administered without co mplication. Automated exposure control was utilized for the study. A dose lowering technique was ut ilized adhering to the principles of ALARA. CT DOSE: 768.37 mGy.cm FINDINGS: Note is made of acute segmental and subsegmental pulmonary emboli within the left lower lo be. There is associated groundglass opacity within the left lower lobe consistent with a pulmonary in farct as shown on abdominal CT. There is a trace left pleural effusion. Evaluation for additional emb esme suboptimal given respiratory motion. Suspected small emboli within the right lower lobe pulmonary artery on axial image 167 of 326 are noted. These are age-indeterminate. Size of the heart is normal . There is no thoracic aortic dissection. There is no pneumothorax. Old left-sided rib fractures are present. Hepatic steatosis is noted. There is a lateral segment cyst, measuring 2.1 cm. IMPRESSION: 1. Segmental and subsegmental pulmonary emboli within the left lower lobe with an associated left low er lobe pulmonary infarct and a trace left pleural effusion. 2. A few additional small suspected pulmonary emboli within the right lower lobe pulmonary artery. ACT 112: Negative or not required by law. Electronically signed by: Dylon Kevin M.D. 05/03/2022 8:01 PM
[2022-05-03] MEDS ORDERED: Heparin IV Adult Wt-Based Standard *NO* Bolus Protocol IV ONE (20:08)
[2022-05-03 20:39] LABS: INR 1.1 (0.9-1.1); Partial Thromboplastin Time 27.1 Seconds (21.0-31.0); Prothrombin Time 11.2 Seconds (9.0-12.0)
[2022-05-03] MEDS: HEPARIN SODIUM/DEXTROSE 25,000 UNITS/500 ML BAG IV SCH (20:43)
--- NOTE | 2022-05-03 21:40 | History & Physical Report ---
Date of Service May 03, 2022 Assessment & Plan (1) Pulmonary emboli: Plan: Patient is a 71-year-old male with no significant past medical history presents to the emergency department for evaluation of left flank pain. Patient reports that he developed flank pain over the last 3 or 4 days. Patient was found to have left segmental and subsegmental pulmonary emboli in the left lung with evidence of infarction. Patient has been started on heparin drip without bolus and is hemodynamically stable. -Admit to [facility] with telemetry under observation -Continue heparin drip started by ED provider -Unsure of cause of PE given no obvious source of hemostasis such as travel or being in bed for long periods of time. -There was a lesion noted on the patient's prostate, consult urology for evaluation of prostate cancer given possibly unprovoked DVT with PE, see plan below -We will likely require anticoagulation for 3 to 6 months may also want to discuss case with hematology for further Recs -Bilateral venous Doppler ultrasound of the lower extremities in morning -Be sure to check if patient is up-to-date on colon cancer screening, not asked during interview (2) BPH (benign prostatic hyperplasia): Plan: - Noted on CT of abdomen pelvis -3.6 cm density at the base of bladder. A urothelial lesion cannot be excluded entirely at this time, consult urology as above PSA ordered for in the morning. Plan Disposition: Admit to [facility] with telemetry Diet: Heart healthy DVT prophylaxis: Heparin CODE STATUS: Full code History of Present Illness Chief Complaint: Left flank pain Primary Care Provider: Tuyet aMr Patient is a 71-year-old male with no significant past medical history presents to the emergency department for evaluation of left flank pain. Patient reports that he developed flank pain over the last 3 or 4 days. He has a history of a kidney stone and reports that it felt similar so he came to the ED for an evaluation. Initially his symptoms were waxing and waning but over the course of today, pain became constant and worse. He denies any hematuria, dysuria, or increased frequency. Does report nighttime urination every once in a while. Denies any shortness of breath. Does report some nausea with one episode of vomiting. Notes that his flank pain gets worse with inspiration. Denies any recent travel, sitting for long periods of time, recent weight loss, or generalized pain. Patient is a never smoker, never drinker. No other complaints voiced at this time. ED course: Patient initially evaluated for left flank pain with CT of abdomen pelvis only showing right renal calculus without obstruction as well as a lesion noted on prostate. It did happen to capture the inferior aspect of the left lung which showed evidence of possible pulmonary infarct and for this reason a chest CT with PE protocol was ordered. This study had shown segmental and subsegmental pulmonary emboli with pulmonary infarct on the left side. Lab work was otherwise benign patient was started on heparin drip without bolus by ED provider and hospitalist service was consulted for admission. Allergies Allergy/AdvReac Type Severity Reaction Status Date / Time No Known Allergies Allergy Unverified 05/03/22 20:53 Home Medications Medication Instructions Recorded Confirmed Type tdgrxpegwjvu-uzhjvynk-tybhip tablet 1 tab PO DAILY 05/03/22 05/03/22 History apixaban 5 mg (74 tabs) tablets in 5 mg PO BID #74 ea 05/04/22 Rx a dose pack ([facility]) Past Med/Surg History Medical History BPH (benign prostatic hyperplasia) Kidney stone Social History Smoking Status: Never smoker Hx Alcohol Use: No Hx Substance Use: No Preferred Language: Singaporean Communication Ability: Effective Mill Control Operator Required: No Beliefs That Will Affect Care: None Current Living Situation: Spouse Feels Safe at Home: Yes Assistive Devices: Glasses Review of Systems Review of Systems: All systems reviewed & are unremarkable except as noted in HPI & below Physical Exam Constitutional: WD/WN, vitals as above Eyes: + anicteric sclerae Neck: trachea midline, no thyromegaly Respiratory: normal respiratory effort, lungs clear to auscultation Cardiovascular: Rate/Rhythm: regular rate and regular rhythm Extremities: + edema (trace b/l LE) Gastrointestinal (Abdomen): normal bowel sounds, soft, nontender, no hepatosplenomegaly Musculoskeletal: Head/Neck/Chest: normocephalic and head atraumatic Skin: no rashes, warm and dry Neurologic: moves all extremities Psychiatric: A+Ox3, euthymic affect Lymphatic: no cervical or axillary lymphadenopathy Results & Data Results & Data Vital Signs (Past 12 Hours) Vital Signs Temp Pulse Pulse Resp BP BP Pulse Ox 03/16/23 19:38 65 18 114/67 94 05/03/22 19:35 66 05/03/22 18:23 81 18 120/75 95 05/03/22 16:54 36.8 C 83 20 140/86 94 O2 Del Method 05/03/22 19:38 Room Air 05/03/22 19:35 05/03/22 18:23 Room Air 05/03/22 16:54 Room Air Code Status & VTE Plan VTE Prophylaxis Plan VTE Prophylaxis will be ordered: No Reason for no VTE drug order: Contraindicated Supervising Physician Co-Signing Physician Notes Attending addendum: I have physically seen this patient, have supervised the medical residents activities, and agree with the H&P unless as otherwise noted. Assessment and Plan: Pulmonary embolism/pulmonary infarct left lower lobe- Observation admission to [facility] with telemetry Continue heparin drip begun by the ED Hypercoagulable work-up Prostate lesion noted on CT, to be assessed for possible prostate cancer Order bilateral lower extremity venous Dopplers Enlarged prostate with prostate lesion- 3.6 cm density at the base of the bladder, with inability to exclude urothelial lesion Consult urology Remaining orders and notations as noted
[2022-05-03] MEDS ORDERED: ACETAMINOPHEN 325 MG TAB PO PRN (23:32)
[2022-05-03] MEDS ORDERED: ONDANSETRON INJ 2 MG/ML 2 ML VIAL IV PRN (23:32)
[2022-05-03] MEDS ORDERED: POLYETHYLENE (MIRALAX) 17 GM PACK PO PRN (23:32)
--- NOTE | 2022-05-03 23:56 | Urology Consultation ---
I have agree with the above documentation. This is a 71 yo male incidental finding of nodular mass protruding into the lumen of the bladder, possible median lobe of the prostate. For now, as long as he is voiding, I would recommend addressing his other medical issues. Once he is discharged he can be further evaluated with outpatient cystoscopy. Date of Consultation May 03, 2022 Assessment & Plan (1) BPH (benign prostatic hyperplasia): The patient has been admitted on the hospitalist service and is currently undergoing anticoagulation for the PE noted on his CT scan. Concerning the lesion noted on his prostate gland we recommend the following: PSA has been ordered and we will follow for the results of this I discussed with the patient that consideration can be given to further work- up regarding this lesion however it will need to be coordinated around his anticoagulation particularly if any biopsies are to be performed. It is likely that this will be performed as an outpatient. We will continue to follow along while the patient is hospitalized with further recommendations to follow. History of Present Illness Reason for Consultation: Prostate lesion Attending Physician: Tico Claudio MD History of Present Illness This is a 71-year-old male who presented to the emergency department at [facility] secondary to left flank pain. He says that the pain has been present for approximately 3 to 4 days. He felt it felt similar to a kidney stone that he experienced in the past so he presented to the emergency department. He denies any shortness of breath. I question the patient about any urologic symptoms. The patient notes that he has not had any back pain in his spine. He denies any fevers, shakes, or chills. He denies any weight loss. He has no family history of prostate cancer. Patient notes that he is able to urinate without difficulty noting he has a strong urine stream and feels he can empty his bladder completely. He denies any dysuria or hematuria. Since arrival to the hospital the patient has had labs and imaging which I independent reviewed. CT scan of the abdomen and pelvis showed the patient had an enlarged prostate with a 3.6 cm density over the base of the bladder. This was felt to represent hypertrophy of the median lobe of the prostate gland. Urothelial lesion could not be excluded however. A CT scan of the chest showed the patient had segmental and subsegmental pulmonary emboli involving the left lower lobe with an associated left lower lobe pulmonary infarction. Labs include a CBC her white blood cell count was 11.9. Hemoglobin was within normal range with a slightly low hematocrit at 40.9. Platelet count was within the normal range. Chemistry profile showed sodium and potassium are normal. The patient's BUN and creatinine were also normal. Urinalysis was not taken of infection and a COVID test was negative. Since admission the patient has been initiated on a heparin drip for his pulmonary emboli. At the time of my interview he was resting comfortably in bed in no distress. Allergies Allergy/AdvReac Type Severity Reaction Status Date / Time No Known Allergies Allergy Unverified 05/03/22 20:53 Home Medications Medication Instructions Recorded Confirmed Type bbnzkfbhvuwf-elhiiyho-fkzlhs tablet 1 tab PO DAILY 05/03/22 05/03/22 History Patient History Medical History BPH (benign prostatic hyperplasia) Kidney stone Social History Smoking Status: Never smoker Hx Alcohol Use: No Hx Substance Use: No Preferred Language: Tajik Communication Ability: Effective Rn Recruitment Required: No Beliefs That Will Affect Care: None Current Living Situation: Spouse Other Information That Helps Us Care for You: No Feels Safe at Home: Yes Safety Concerns: Feels Safe At This Time Assistive Devices: None Review of Systems Constitutional: no fever and no chills Eyes: no eye pain Ear, Nose, Mouth, Throat: no ear pain Respiratory: no cough and no dyspnea Cardiovascular: no chest pain Gastrointestinal: no abdominal pain Genitourinary: + as per Subjective / HPI Musculoskeletal: + back pain (Left flank) Integumentary: no rash Neurologic: no localized weakness Physical Exam Constitutional: WD/WN, vitals as above Eyes: no conjunctival abnormality ENMT: Ears: no hearing impairment and no external ear abnormality Mouth: no oropharynx abnormality Neck: trachea midline Respiratory: normal respiratory effort; no respiratory distress and no labored breathing Cardiovascular: Rate/Rhythm: regular rate and regular rhythm Gastrointestinal (Abdomen): Abdomen is soft, nonrigid, nondistended and nontender to palpation. There is no suprapubic discomfort. Musculoskeletal: No calf tenderness Skin: no rashes Neurologic: moves all extremities Psychiatric: A+Ox3, euthymic affect Genitourinary: no CVA tenderness Results & Data Vital Signs (Past 12 Hours) Vital Signs Temp Pulse Pulse Pulse Resp BP BP 05/03/22 23:14 36.3 C L 62 16 141/84 H 05/03/22 19:38 65 18 114/67 05/03/22 19:35 66 05/03/22 18:23 81 18 120/75 05/03/22 16:54 36.8 C 83 20 140/86 Pulse Ox O2 Del Method 05/03/22 23:14 97 Room Air 05/03/22 19:38 94 Room Air 05/03/22 19:35 05/03/22 18:23 95 Room Air 05/03/22 16:54 94 Room Air PG Care Time/CCT Total # of Minutes Spent Total Time Spent with Patient: Total time spent is greater than 50% in coordination of care (as documented) at patient's floor/unit and/or counseling patient: Coding Level of Care Code 56161 INT INP/OBS CARE 2/55MIN Diagnoses BPH (benign prostatic hyperplasia) N40.0
--- NOTE | 2022-05-03 23:57 | Ultrasound Report ---
Exam(s): US VENOUS BILATERAL LOWER EXTREMITIES EXAM: US Duplex Bilateral Lower Extremities Veins CLINICAL HISTORY: Reason for exam: PE. TECHNIQUE: Real-time duplex ultrasound scan of the bilateral lower extremity veins integrating B-mode two-dimensional vascular structure, Doppler spectral analysis, color flow Doppler imaging and compression. COMPARISON: No relevant prior studies available. FINDINGS: Right deep veins: Nonocclusive thrombus in the right popliteal and peroneal veins. Right superficial veins: Unremarkable. No thrombus in the visualized right great saphenous vein. Left deep veins: Unremarkable. No DVT in the left common femoral, femoral, proximal deep femoral or popliteal veins. The veins demonstrate normal color flow, are normally compressible, with normal phasic flow and/or augmentation response. Left superficial veins: Unremarkable. No thrombus in the visualized left great saphenous vein. Soft tissues: No acute findings. No popliteal cyst. IMPRESSION: Nonocclusive thrombus in the right popliteal and peroneal veins. Electronically signed by: Micha Wilson MD 05/03/22 23:57 PM
[2022-05-04 03:11] LABS: BUN Creatinine Ratio 15.8 (10-20); Calcium 8.5 mg/dl (8.5-10.1); Creatinine Clr Calc Pharmacy 125.2 ml/min; Est GFR (African American) 106.4 ml/min; Est GFR (Non-African American) 91.8 ml/min; Potassium 3.7 mmol/L (3.5-5.1)
[2022-05-04 03:13] LABS: Hematocrit (blood only) 37.2 % (42.0-52.0); Mean Corpuscular Hemoglobin 31.9 pg (25.0-34.0); Mean Corpuscular Hgb Conc 34.9 g/dL (32.0-36.0); Mean Corpuscular Volume 91.2 fL (80.0-100.0); Mean Platelet Volume 10.8 fL (9.4-12.4); Platelet Count 126 K/uL (130-400); RDW Coefficient of Variation 12.6 % (11.5-14.5); RDW Standard Deviation 41.7 fL (36.4-46.3); Red Blood Count 4.08 M/uL (4.70-6.10); White Blood Count 9.02 K/ul (4.8-10.8)
[2022-05-04 03:46] LABS: Free PSA % 22.2 %; Prostate SpecificAg Diagnostic 1.621 ng/ml (0-4)
[2022-05-04 03:54] LABS: Partial Thromboplastin Time 53.9 Seconds (21.0-31.0)
[2022-05-04] MEDS: HEPARIN SODIUM/DEXTROSE 25,000 UNITS/500 ML BAG IV SCH (10:53)
[2022-05-04] MEDS ORDERED: APIXABAN 5 MG TABLET PO ONE (14:00)
--- NOTE | 2022-05-04 15:49 | Hospitalist Progress Note ---
Date of Service May 04, 2022 Assessment & Plan (1) Pulmonary emboli: Plan: PE secondary to right leg DVT Patient was started on a heparin drip switch to p.o. Eliquis -This is an unprovoked DVT with PE Will likely need outpatient hematology appointment for hypercoagulable work-up (2) BPH (benign prostatic hyperplasia): Plan: -There was a lesion noted on the patient's prostate Patient was evaluated by urologist PSA came back as normal Patient will likely need a biopsy which will need to be coordinated around his anticoagulation. Outpatient urology appointment (3) Acute deep vein thrombosis of right lower extremity: Plan: Plan per above Admission and Anticipated Discharge Date Admission Date: May 03, 2022 Subjective Patient feels well. Denies chest pain or shortness of breath. Flank pain has resolved. Review of Systems Review of Systems: All systems reviewed & are unremarkable except as noted in Subjective Physical Exam Physical Exam: General: Awake, conversant Heart: S1, S2/regular rate and rhythm, no murmur rubs or gallops Lungs: Clear to auscultation bilaterally. Normal effort Abdomen: Soft/nontender/nondistended. No hepatosplenomegaly Extremities: No clubbing/cyanosis. No edema Behavior: Appropriate, cooperative Results & Data Results & Data Vital Signs (Past 12 Hours) Vital Signs Temp Pulse Resp BP Pulse Ox O2 Del Method 05/04/22 15:43 37.1 C 67 18 141/77 H 95 Room Air 05/04/22 11:07 37.0 C 67 18 145/80 H 95 Room Air 05/04/22 07:44 36.6 C 66 18 142/78 H 96 Room Air Laboratory Results Abnormal lab results 05/03/22 05/03/22 05/04/22 Range/Units 17:06 17:06 02:30 WBC 11.98 H (4.8-10.8) K/ul RBC 4.58 L 4.08 L (4.70-6.10) M/uL Hgb 13.0 L (14.0-18.0) g/dl Hct 40.9 L 37.2 L (42.0-52.0) % Plt Count 126 L (130-400) K/uL Neut # (Auto) 9.32 H (1.40-6.50) K/uL Lymph # (Auto) 1.19 L (1.2-3.4) K/uL [place] # (Auto) 1.34 H (0.11-0.59) K/uL APTT (21.0-31.0) Seconds Glucose 133 H (70-99(Fasting)) mg/dl Total Bilirubin 1.9 H (0.2-1.0) mg/dl 05/04/22 05/04/22 Range/Units 02:30 02:30 WBC (4.8-10.8) K/ul RBC (4.70-6.10) M/uL Hgb (14.0-18.0) g/dl Hct (42.0-52.0) % Plt Count (130-400) K/uL Neut # (Auto) (1.40-6.50) K/uL Lymph # (Auto) (1.2-3.4) K/uL [place] # (Auto) (0.11-0.59) K/uL APTT 53.9 H* (21.0-31.0) Seconds Glucose 129 H (70-99(Fasting)) mg/dl Total Bilirubin (0.2-1.0) mg/dl Diagnostic Findings Abdomen/Pelvis CT 05/03/22 18:26 CT OF THE ABDOMEN AND PELVIS WITHOUT CONTRAST CLINICAL HISTORY: Left flank pain. COMPARISON STUDY: CT of the abdomen and pelvis October 13, 2017. TECHNIQUE: Axial images of the abdomen and pelvis were obtained without IV contrast. Images were reviewed in the axial, sagittal, and coronal planes. Automated exposure control was utilized for the study. A dose lowering technique was utilized adhering to the principles of ALARA. FINDINGS: Visualized portions of the lower chest demonstrate a trace left pleural effusion. There is groundglass opacity within the left lower lobe. No pneumatosis, free air or portal venous gas is present. There are no ureteral calculi. There is no hydronephrosis. Punctate right renal calculus is present. The prostate is enlarged. Note is again made of a 3.6 cm density which projects over the base of the bladder. This is contiguous with the prostate. This likely reflects hypertrophy of the median lobe. Evaluation of the remainder of the abdomen and pelvis is suboptimal on this unenhanced exam. Hepatic steatosis. A lateral segment hepatic cyst measures 2.5 cm. The spleen, adrenal glands and pancreas are unremarkable. There is no lymphadenopathy. The appendix is normal. Colonic diverticulosis is present. There is no evidence for acute diverticulitis. No evidence for a bowel obstruction. There is a small fat- containing umbilical hernia. No acute fractures are present. There are bilateral renal parapelvic cysts. IMPRESSION: 1. No ureteral calculi. No hydronephrosis. Punctate right renal calculus. 2. Trace left pleural effusion with groundglass opacity within the left lower lobe. This is nonspecific and could reflect atelectasis or an infectious process however a pulmonary infarct is within the differential. If suspicion for pulmonary embolus, a PE protocol chest CT is recommended. 3. Colonic diverticulosis. No evidence for acute diverticulitis. 4. No bowel obstruction. 5. Enlarged prostate. Redemonstration of a 3.6 cm density which projects over the base of the bladder. This likely reflects hypertrophy of the median lobe of the prostate given stability. A urothelial lesion could appear similar but is considered less likely. ACT 112: Negative or not required by law. Electronically signed by: Dylon Kevin M.D. 05/03/2022 6:53 PM Chest CTA 05/03/22 19:12 CT ANGIOGRAPHY OF THE CHEST, PULMONARY EMBOLUS PROTOCOL CLINICAL HISTORY: PE COMPARISON STUDY: Chest CT September 26, 2016. TECHNIQUE: Following IV administration of 105 mL of Optiray, helical axial images of the chest were obtained utilizing the pulmonary embolus protocol. Maximal intensity projections and sagittal and coronal reformats were viewed on an independent 3D workstation. IV contrast was administered without complication. Automated exposure control was utilized for the study. A dose lowering technique was utilized adhering to the principles of ALARA. CT DOSE: 768.37 mGy.cm FINDINGS: Note is made of acute segmental and subsegmental pulmonary emboli within the left lower lobe. There is associated groundglass opacity within the left lower lobe consistent with a pulmonary infarct as shown on abdominal CT. There is a trace left pleural effusion. Evaluation for additional emboli suboptimal given respiratory motion. Suspected small emboli within the right lower lobe pulmonary artery on axial image 167 of 326 are noted. These are age- indeterminate. Size of the heart is normal. There is no thoracic aortic dissection. There is no pneumothorax. Old left-sided rib fractures are present. Hepatic steatosis is noted. There is a lateral segment cyst, measuring 2.1 cm. IMPRESSION: 1. Segmental and subsegmental pulmonary emboli within the left lower lobe with an associated left lower lobe pulmonary infarct and a trace left pleural effusion. 2. A few additional small suspected pulmonary emboli within the right lower lobe pulmonary artery. ACT 112: Negative or not required by law. Electronically signed by: Dylon Kevin M.D. 05/03/2022 8:01 PM Venous Doppler Study 05/03/22 21:39 Exam(s): US VENOUS BILATERAL LOWER EXTREMITIES EXAM: US Duplex Bilateral Lower Extremities Veins CLINICAL HISTORY: Reason for exam: PE. TECHNIQUE: Real-time duplex ultrasound scan of the bilateral lower extremity veins integrating B-mode two-dimensional vascular structure, Doppler spectral analysis, color flow Doppler imaging and compression. COMPARISON: No relevant prior studies available. FINDINGS: Right deep veins: Nonocclusive thrombus in the right popliteal and peroneal veins. Right superficial veins: Unremarkable. No thrombus in the visualized right great saphenous vein. Left deep veins: Unremarkable. No DVT in the left common femoral, femoral, proximal deep femoral or popliteal veins. The veins demonstrate normal color flow, are normally compressible, with normal phasic flow and/or augmentation response. Left superficial veins: Unremarkable. No thrombus in the visualized left great saphenous vein. Soft tissues: No acute findings. No popliteal cyst. IMPRESSION: Nonocclusive thrombus in the right popliteal and peroneal veins. Electronically signed by: Micha Wilson MD 05/03/22 23:57 PM PG Care Time/CCT Total # of Minutes Spent Total Time Spent with Patient: Total time spent is greater than 50% in coordination of care (as documented) at patient's floor/unit and/or counseling patient: Coding Level of Care Code 62907 SUB INP/OBS CARE 2/35MIN Diagnoses Pulmonary emboli I26.99 BPH (benign prostatic hyperplasia) N40.0 Acute deep vein thrombosis of right lower extremity I82.401
[2022-05-04] MEDS: APIXABAN 5 MG TABLET PO SCH (20:00)
--- NOTE | 2022-05-05 01:52 | Electrocardiogram Report ---
Test Reason : Blood Pressure : / mmHG Vent. Rate : 062 BPM Atrial Rate : 062 BPM P-R Int : 188 ms QRS Dur : 094 ms QT Int : 422 ms P-R-T Axes : 035 -13 037 degrees QTc Int : 428 ms Normal sinus rhythm Normal ECG When compared with ECG of 26-SEP-2016 19:39, No significant change was found Confirmed by Herberth Kaufman ([id number]) on 05/05/2022 1:51:34 AM Referred By: REFERRED SELF Confirmed By:Herberth Kaufman
[2022-05-05 07:08] LABS: Basophils # (auto) 0.04 K/uL (0-0.2); Basophils % (auto) 0.7 %; Eosinophils # (auto) 0.17 K/uL (0-0.50); Eosinophils % (auto) 3.1 %; Hematocrit (blood only) 39.7 % (42.0-52.0); Hemoglobin 13.5 g/dl (14.0-18.0); Immature Granulocytes # (auto) 0.02 K/uL (0.01-0.20); Immature Granulocytes % (auto) 0.4 %; Lymphocytes % (auto) 29.6 %; Mean Corpuscular Hemoglobin 31.6 pg (25.0-34.0); Mean Platelet Volume 10.6 fL (9.4-12.4); Monocytes # (auto) 0.69 K/uL (0.11-0.59); Monocytes % (auto) 12.8 %; Neutrophils # (auto) 2.88 K/uL (1.40-6.50); Neutrophils % (auto) 53.4 %; Platelet Count 143 K/uL (130-400); RDW Coefficient of Variation 12.6 % (11.5-14.5); RDW Standard Deviation 43.1 fL (36.4-46.3); Red Blood Count 4.27 M/uL (4.70-6.10)
[2022-05-05 07:48] LABS: Partial Thromboplastin Ratio 1.1; Partial Thromboplastin Time 31.2 Seconds (21.0-31.0)
[2022-05-05] MEDS: APIXABAN 5 MG TABLET PO SCH (08:15)
--- NOTE | 2022-05-05 10:05 | Discharge Summary ---
Date of Service May 05, 2022 Admission HPI Per Admitting Provider Patient is a 71-year-old male with no significant past medical history presents to the emergency department for evaluation of left flank pain. Patient reports that he developed flank pain over the last 3 or 4 days. He has a history of a kidney stone and reports that it felt similar so he came to the ED for an evaluation. Initially his symptoms were waxing and waning but over the course of today, pain became constant and worse. He denies any hematuria, dysuria, or increased frequency. Does report nighttime urination every once in a while. Denies any shortness of breath. Does report some nausea with one episode of vomiting. Notes that his flank pain gets worse with inspiration. Denies any recent travel, sitting for long periods of time, recent weight loss, or generalized pain. Patient is a never smoker, never drinker. No other complaints voiced at this time. ED course: Patient initially evaluated for left flank pain with CT of abdomen pelvis only showing right renal calculus without obstruction as well as a lesion noted on prostate. It did happen to capture the inferior aspect of the left lung which showed evidence of possible pulmonary infarct and for this reason a chest CT with PE protocol was ordered. This study had shown segmental and subsegmental pulmonary emboli with pulmonary infarct on the left side. Lab work was otherwise benign patient was started on heparin drip without bolus by ED provider and hospitalist service was consulted for admission. Admission Exam Per Admitting Provider Constitutional: WD/WN, vitals as above Eyes: + anicteric sclerae Neck: trachea midline, no thyromegaly Respiratory: normal respiratory effort, lungs clear to auscultation Cardiovascular: Rate/Rhythm: regular rate and regular rhythm Extremities: + edema (trace b/l LE) Gastrointestinal (Abdomen): normal bowel sounds, soft, nontender, no hepatosplenomegaly Musculoskeletal: Head/Neck/Chest: normocephalic and head atraumatic Skin: no rashes, warm and dry Neurologic: moves all extremities Psychiatric: A+Ox3, euthymic affect Lymphatic: no cervical or axillary lymphadenopathy Principal Diagnosis Acute PE secondary to right lower extremity acute DVT, prostate lesion Discharge Exam General: Awake, conversant Heart: S1, S2/regular rate and rhythm, no murmur rubs or gallops Lungs: Clear to auscultation bilaterally. Normal effort Abdomen: Soft/nontender/nondistended. No hepatosplenomegaly Extremities: No clubbing/cyanosis. No edema Behavior: Appropriate, cooperative Discharge Data Allergies Allergy/AdvReac Type Severity Reaction Status Date / Time No Known Allergies Allergy Unverified 05/03/22 20:53 Consultations 05/03/22 20:47 ED Decision to Admit Stat 05/03/22 22:34 Consult Urology Routine 05/04/22 15:53 Consult [facility] world geography teacher Routine 05/04/22 16:17 Consult [facility] world geography teacher Routine 05/05/22 08:13 Consult [facility] world geography teacher Routine Ordered Studies 05/03/22 18:26 CT abd pelvis wo con Stat 05/03/22 19:12 CT angio chest PE protocol Stat 05/03/22 21:39 US leg [US venous doppler LE ] Urgent Hospital Course (1) Pulmonary emboli: PE secondary to right leg DVT Patient was started on a heparin drip switchedto p.o. Eliquis -This is an unprovoked DVT with PE Will likely need outpatient hematology appointment for hypercoagulable work-up (2) BPH (benign prostatic hyperplasia): -There was a lesion noted on the patient's prostate Patient was evaluated by urologist PSA came back as normal Patient will likely need a biopsy which will need to be coordinated around his anticoagulation. Outpatient urology appointment (3) Acute deep vein thrombosis of right lower extremity: Plan per above Total Time Total Time Spent Total Time Spent (In Minutes): 35 Discharge Plan Discharge Items Patient Disposition: Home - Self-Care Reason For Visit: L FLANK PAIN Discharge Diagnosis: PE, right leg DVT Activity: Resume your previous activity Non-emergency contact: Primary Care Provider Call non-emergency contact if: your symptoms worsen Follow-up/Referrals: Tuyet Mar [Primary Care Provider] - Santino Garza MD [Physician] - Diet: Regular Addtl Attending Provider Instructions: Follow-up with PCP in 1 week Follow-up with hematology in 1 week Follow-up with urology in 2 weeks Pending Studies at Discharge: No Stand-Alone Forms: My [employer] Medications and DC Order Prescriptions: New Eliquis 5 mg (74 tabs) tablets,dose pack 5 mg PO BID Qty: 74 0RF Rx Instructions: 2 tabs bid for 1 week, then 1 tab bid Continued [id number] Tablet 1 tab PO DAILY Discharge Orders: Discharge Order (Routine); Ordered 05/05/22 Ordered By: Aarti Fox/Other Patient Handouts: Pulmonary Embolism, Benign Prostatic Hyperplasia Admission Data Admit Date/Time: 05/03/22 21:30 Attending Provider: Aarti Clements Admit Provider: Byron Castaneda Primary Care Provider: Tuyet Mar Other Providers: Santino Garza ; Tico Claudio Other Interventions: Discharge Summary Assessment (RN) Last Done: 05/05/22 10:09 Coding Level of Care Code 03094 INP/OBS DISCH >30 MIN Diagnoses Pulmonary emboli I26.99 BPH (benign prostatic hyperplasia) N40.0 Acute deep vein thrombosis of right lower extremity I82.401 Time Spent (min) 35
--- NOTE | 2022-05-05 21:58 | Billing Data ---
Date of Service May 05, 2022 Coding Level of Care Code 68381 INT INP/OBS CARE
== END 2022-05-05 10:15 | disposition home or self-care (01) ==
LOC: ED 16:40 → 2N 16:40 → SUATTDRO 21:30 → 2N 22:43